=== PATIENT | female | born 1980 | race Two or more races ===

== ENCOUNTER 2023-08-18 23:59 | Emergency (ER) | payer SELFPAY ==
[~2023-08-18] VITALS: Ht 162.6 cm; Wt 64.8 kg
[2023-08-19 00:45] LABS: BASO # 0.1 10^3/uL (0.0-0.2); BASO % 0.7 % (0.0-1.0); EOS # 0.1 10^3/uL (0.0-0.5); EOS % 1.3 % (0.0-3.0); HEMATOCRIT 37.5 % (36.0-47.0); LYMPH # 2.2 10^3/uL (1.5-5.0); LYMPH % 25.6 % (24.0-44.0); MEAN CORPUSCULAR HEMOGLOBIN 30.6 pg (27.0-33.0); MEAN CORPUSCULAR HGB CONC 34.7 g/dl (32.0-36.5); MEAN CORPUSCULAR VOLUME 88.2 fl (80.0-96.0); MONO # 0.7 10^3/uL (0.0-0.8); MONO % 8.4 % (2.0-8.0); NEUTROPHILS # 5.4 10^3/uL (1.5-8.5); NEUTROPHILS % 63.9 % (36.0-66.0); PLATELET COUNT, AUTOMATED 260 10^3/uL (150-450); RED BLOOD COUNT 4.25 10^6/uL (4.00-5.40); WHITE BLOOD COUNT 8.4 10^3/uL (4.0-10.0)
[2023-08-19 01:55] LABS: LIPASE 40 U/L (12-53)
[2023-08-19 01:57] LABS: ALBUMIN 3.9 G/DL (3.2-5.2); ALKALINE PHOSPHATASE 54 U/L (46-116); ALT/SGPT 20 U/L (7.0-40); AST/SGOT 9 U/L (<34); BILIRUBIN,DIRECT 0.2 MG/DL (<0.4); BILIRUBIN,TOTAL 0.5 MG/DL (0.3-1.2); BLOOD UREA NITROGEN 13 MG/DL (9-23); CALCIUM LEVEL 9.7 MG/DL (8.5-10.1); CARBON DIOXIDE LEVEL 25 MMOL/L (20-31); CHLORIDE LEVEL 107 MMOL/L (98-107); CREATININE FOR GFR 0.63 MG/DL (0.55-1.30); GLOMERULAR FILTRATION RATE > 60.0 (>58); GLUCOSE, FASTING 146 MG/DL (60-100); POTASSIUM SERUM 3.8 MMOL/L (3.5-5.1); SODIUM LEVEL 137 MMOL/L (136-145)
[2023-08-19] MEDS: TAMSULOSIN 0.4 MG CAP PO ONE (06:11)
[2023-08-19 06:29] VITALS: TEMP 96.8; O2SAT 98
[2023-08-19 06:30] VITALS: BP 111/70
[2023-08-19] MEDS ORDERED: ONDA-282 PO (06:33)
[2023-08-19] MEDS ORDERED: FLOM0.4C39 PO (06:33)
[2023-08-19] MEDS ORDERED: KETO10TAB PO (06:33)
== END 2023-08-19 06:52 | disposition home or self-care (01) ==
LOC: M ED 23:59
DX: N20.0 Calculus of kidney (principal); Z88.2 Allergy status to sulfonamides; Z88.8 Allergy status to other drugs, medicaments and biological substances; Z79.2 Long term (current) use of antibiotics; Z79.899 Other long term (current) drug therapy

== ENCOUNTER → 2023-09-10 | Outpatient (CLI) | payer SELFPAY ==
[~2023-09-10] MED LIST: FLOM0.4C39 PO; KETO10TAB PO; ONDA-282 PO
[2023-09-10 18:56] LABS: APPEARANCE, URINE HAZY (CLEAR); BACTERIA, URINE AUTO 1+ (NEGATIVE); BILIRUBIN, URINE AUTO NEGATIVE (NEGATIVE); BLOOD, URINE BLOOD 2+ (NEGATIVE); COLOR, URINE YELLOW (YELLOW); GLUCOSE, URINE (UA) AUTO NEGATIVE (NEGATIVE); KETONE, URINE AUTO NEGATIVE (NEGATIVE); LEUKOCYTE ESTERASE, URINE AUTO 1+ (NEGATIVE); MUCUS, URINE SMALL (NEGATIVE); NITRITE, URINE AUTO NEGATIVE (NEGATIVE); PROTEIN, URINE AUTO 1+ mg/dL (NEGATIVE); RBC, URINE AUTO 6 /HPF (0-3); SPECIFIC GRAVITY URINE AUTO 1.013 (1.002-1.035); SQUAMOUS EPITHELIAL CELL UR AU 4 /HPF (0-6); UROBILINOGEN, URINE AUTO 0.2 mg/dL (0.0-2.0); WBC, URINE AUTO 20 /HPF (0-3)
== END ==
LOC: M PLAIMG 16:35
PROVIDERS: ATTEND Urology
DX: N20.0 Calculus of kidney (principal)

== ENCOUNTER 2023-09-17 09:27 | Day surgery (SDC) | payer SELFPAY ==
[~2023-09-17] VITALS: Ht 167.6 cm; Wt 63.1 kg
[2023-09-17] MEDS ORDERED: KETO10TAB PO (09:35)
[2023-09-17 11:19] LABS: APPEARANCE, URINE HAZY (CLEAR); BACTERIA, URINE AUTO NEGATIVE (NEGATIVE); BILIRUBIN, URINE AUTO NEGATIVE (NEGATIVE); BLOOD, URINE BLOOD 2+ (NEGATIVE); COLOR, URINE YELLOW (YELLOW); GLUCOSE, URINE (UA) AUTO NEGATIVE (NEGATIVE); KETONE, URINE AUTO NEGATIVE (NEGATIVE); LEUKOCYTE ESTERASE, URINE AUTO 1+ (NEGATIVE); MUCUS, URINE SMALL (NEGATIVE); NITRITE, URINE AUTO NEGATIVE (NEGATIVE); PROTEIN, URINE AUTO NEGATIVE (NEGATIVE); RBC, URINE AUTO 12 /HPF (0-3); SQUAMOUS EPITHELIAL CELL UR AU 5 /HPF (0-6); UROBILINOGEN, URINE AUTO 0.2 mg/dL (0.0-2.0); WBC, URINE AUTO 33 /HPF (0-3)
[2023-09-17 11:57] LABS: BASO % 0.3 % (0.0-1.0); HEMATOCRIT 40.8 % (36.0-47.0); HEMOGLOBIN 13.8 g/dl (12.0-15.5); LYMPH # 0.8 10^3/uL (1.5-5.0); LYMPH % 6.2 % (24.0-44.0); MEAN CORPUSCULAR HEMOGLOBIN 29.9 pg (27.0-33.0); MEAN CORPUSCULAR HGB CONC 33.8 g/dl (32.0-36.5); MEAN CORPUSCULAR VOLUME 88.3 fl (80.0-96.0); MONO # 0.9 10^3/uL (0.0-0.8); MONO % 6.7 % (2.0-8.0); NEUTROPHILS # 11.7 10^3/uL (1.5-8.5); NEUTROPHILS % 86.4 % (36.0-66.0); PLATELET COUNT, AUTOMATED 251 10^3/uL (150-450); RED BLOOD COUNT 4.62 10^6/uL (4.00-5.40); WHITE BLOOD COUNT 13.5 10^3/uL (4.0-10.0)
[2023-09-17 12:25] LABS: BLOOD UREA NITROGEN 17 MG/DL (9-23); CALCIUM LEVEL 9.8 MG/DL (8.5-10.1); CARBON DIOXIDE LEVEL 26 MMOL/L (20-31); CHLORIDE LEVEL 108 MMOL/L (98-107); CREATININE FOR GFR 1.08 MG/DL (0.55-1.30); GLOMERULAR FILTRATION RATE 58.9 (>58); GLUCOSE, FASTING 105 MG/DL (60-100); POTASSIUM SERUM 4.1 MMOL/L (3.5-5.1); SODIUM LEVEL 139 MMOL/L (136-145)
[2023-09-17 12:35] LABS: HCG, SERUM QUALITATIVE NEGATIVE (NEGATIVE)
[2023-09-17] MEDS ORDERED: ceFAZolin 2 GM/D5W 50 ML IV BAG As Ordered ONE (13:57)
[2023-09-17] MEDS: ceFAZolin SOD 2 GM in IV 1 EA IV ONE (14:05)
[2023-09-17] MEDS: ISOVUE-300 61% 100ML VIAL As Ordered ONE (14:30)
[2023-09-17] MEDS ORDERED: propofoL 200 MG/20 ML VIAL As Ordered ONE (14:44)
[2023-09-17] MEDS ORDERED: fentaNYL 100 MCG/2 ML INJECTION As Ordered ONE (14:44)
[2023-09-17] MEDS ORDERED: MIDAZOLAM INJ 2MG/2ML VIAL As Ordered ONE (14:44)
[2023-09-17] MEDS ORDERED: ACETAMINOPHEN 1000MG 100ML IV BAG As Ordered ONE (14:44)
[2023-09-17] MEDS ORDERED: LIDOCAINE 2% 100MG/5ML SDV (FOR ANES.) As Ordered ONE (14:44)
[2023-09-17] MEDS ORDERED: ONDANSETRON 4MG 2ML VIAL As Ordered ONE (14:44)
[2023-09-17] MEDS ORDERED: fentaNYL 100 MCG/2 ML INJECTION IV PRN (14:45)
[2023-09-17] MEDS ORDERED: HYDROMORPHONE HCL 0.5 MG/ 0.5 ML SYRINGE IV PRN (14:45)
[2023-09-17] MEDS ORDERED: oxyCODONE 5MG TAB PO PRN (14:45)
[2023-09-17] MEDS ORDERED: LR 1,000 ML IV SCH (14:45)
[2023-09-17] MEDS ORDERED: OXYB5TAB14 PO (14:46)
[2023-09-17] MEDS: ONDANSETRON 4MG 2ML VIAL IV PRN (14:55)
[2023-09-17] MEDS: METOCLOPRAMIDE INJ 10MG/2ML VIAL IV PRN (15:00)
[2023-09-17] MEDS ORDERED: MEPERIDINE 25 MG/ML 1ML VIAL As Ordered ONE (15:12)
[2023-09-17] MEDS: MEPERIDINE 25 MG/ML 1ML VIAL IV PRN (15:15)
[2023-09-17 16:10] VITALS: BP 117/69; TEMP 97.8; O2SAT 98
== END 2023-09-17 16:25 | disposition home or self-care (01) ==
LOC: M ED 09:27 → M SDC 09:28
PROVIDERS: ATTEND Urology
DX: N13.2 Hydronephrosis with renal and ureteral calculous obstruction (principal); Z87.442 Personal history of urinary calculi; Z88.2 Allergy status to sulfonamides; Z88.8 Allergy status to other drugs, medicaments and biological substances
CPT/HCPCS: 52332; 52352; 74176; 76000; 80048; 81001; 82365; 84703; 85025; 99283; C1769; C2617; J0131; J0690; J1100; J2175; J2250; J2405; J2765; J3010; Q9967

== ENCOUNTER → 2024-05-21 | Outpatient (CLI) | payer SELFPAY ==
[~2024-05-21] MED LIST changes: +OXYB5TAB14 PO
== END ==
LOC: M PLAIMG 09:37
PROVIDERS: ATTEND Urology
DX: N20.0 Calculus of kidney (principal)